=== PATIENT | male | born 1965 | race Caucasian/White ===

== ENCOUNTER 2020-08-28 12:20 | Outpatient (CLI) | payer OTHER, SELFPAY ==
--- NOTE | ~2020-08-28 | XR_ITS ---
EXAMINATION: XR lumbar spine min 4V, XR sacroiliac joints min 3V DATE: 08/28/2020 13:03 INDICATION: Arthropathic psoriasis TECHNIQUE: 1. Anteroposterior, lateral, bilateral oblique and cone-down lateral lumbosacral views of the lumbar spine were obtained. 2. Anteroposterior and left and right oblique views of the sacroiliac joints were obtained. COMPARISON: None. FINDINGS: Lumbar spine: Alignment is normal. Vertebral body and disc heights are normal. Multilevel mild bilateral lumbar fac et osteoarthritis. No pars interarticularis defects. Pelvis: Osteoarthritis with moderate nonuniform joint space narrowing at the bilateral sacroiliac joints. No evident erosions or specifically suggest an inflammatory sacroiliitis. Sacral arches are intact. Bila teral hip joint spaces are normal. Phlebolith in the right hemipelvis. IMPRESSION: 1. Polyarticular osteoarthritis, mild at multiple lumbar facet joints and moderate at the bilateral s acroiliac joints. Reviewed, dictated and finalized at location A. IMPRESSION: 1. Polyarticular osteoarthritis, mild at multiple lumbar facet joints and moder ate at the bilateral sacroiliac joints.
[2020-08-28 13:03] LABS: Hematocrit 47.5 % (42.0-52.0); Hemoglobin 16.2 g/dL (14.0-18.0); Mean Corpuscular HGB Conc 34.1 g/dl (32-36); Mean Corpuscular Hemoglobin 32.8 pg (26-34); Mean Corpuscular Volume 96.2 fl (80-100); Platelet Count Result 193 k/mm3 (150-375); Red Blood Count 4.94 M/mm3 (4.6-6.20); Red Cell Distribution Width 12.1 % (11.5-14.5); White Blood Count 5.5 K/mm3 (4.5-10.0)
[2020-08-28 13:25] LABS: Alanine Aminotransferase 69 U/L (4-50); Albumin Level 4.8 g/dL (3.5-5.1); Alkaline Phosphatase 84 U/L (38-126); Anion Gap 5 mmol/L (8-16); Aspartate Amino Transferase 57 U/L (17-59); Bilirubin,Total 0.9 mg/dL (0.2-1.3); Blood Urea Nitrogen 13 mg/dL (9-20); CRP 0.6 mg/dL (<1.0); Calcium 9.6 mg/dL (8.4-10.2); Carbon Dioxide 32 mmol/L (22-30); Chloride 102 mmol/L (98-107); Estimated Glomerular Filt Rate > 60; Glucose 97 mg/dL (75-110); Potassium 4.2 mmol/L (3.4-5.0); Sodium 139 mmol/L (137-145)
[2020-08-28 14:55] LABS: Erythrocyte Sedimentation Rate 6 mm/hr (0-20)
== END 2020-08-28 12:21 | disposition home or self-care (01) ==
PROVIDERS: Visit Provider Internal Medicine
DX: L40.50 Arthropathic psoriasis, unspecified (principal); M19.90 Unspecified osteoarthritis, unspecified site; M51.36 Other intervertebral disc degeneration, lumbar region
CPT/HCPCS: 36415; 72110; 72202; 80053; 85027; 85652; 86140

== ENCOUNTER 2020-09-01 11:22 | Outpatient (CLI) | payer OTHER, SELFPAY ==
[2020-09-04 21:39] LABS: NIL 0.05 IU/mL; Quantiferon TB Plus, 1T NEGATIVE (NEGATIVE); TB1-NIL 0.01 IU/mL; TB2-NIL 0.01 IU/mL
== END 2020-09-01 11:23 | disposition home or self-care (01) ==
PROVIDERS: Visit Provider Internal Medicine
DX: L40.50 Arthropathic psoriasis, unspecified (principal)
CPT/HCPCS: 36415; 86480

== ENCOUNTER 2021-01-29 16:20 | Outpatient (CLI) | payer OTHER, SELFPAY ==
[2021-01-29 17:21] LABS: Alanine Aminotransferase 86 U/L (4-50); Alkaline Phosphatase 85 U/L (38-126); Anion Gap 9 mmol/L (8-16); Aspartate Amino Transferase 56 U/L (17-59); Blood Urea Nitrogen 11 mg/dL (9-20); Calcium 9.5 mg/dL (8.4-10.2); Carbon Dioxide 30 mmol/L (22-30); Chloride 102 mmol/L (98-107); Estimated Glomerular Filt Rate > 60; Glucose 82 mg/dL (65-110); Potassium 4.3 mmol/L (3.4-5.0); Sodium 141 mmol/L (137-145)
== END 2021-01-29 16:21 | disposition home or self-care (01) ==
LOC: ANHLAB 16:23
PROVIDERS: Visit Provider Internal Medicine
DX: M19.90 Unspecified osteoarthritis, unspecified site (principal); L40.50 Arthropathic psoriasis, unspecified
CPT/HCPCS: 36415; 80053

== ENCOUNTER 2021-09-28 09:59 | Outpatient (CLI) | payer OTHER, SELFPAY ==
[2021-09-28 10:39] LABS: Alanine Aminotransferase 68 U/L (6-50); Albumin Level 4.7 g/dL (3.5-5.1); Alkaline Phosphatase 85 U/L (38-126); Anion Gap 7 mmol/L (8-16); Aspartate Amino Transferase 51 U/L (17-59); Bilirubin,Total 0.7 mg/dL (0.2-1.3); Blood Urea Nitrogen 15 mg/dL (9-20); Calcium 9.2 mg/dL (8.4-10.2); Carbon Dioxide 28 mmol/L (22-30); Chloride 105 mmol/L (98-107); Estimated Glomerular Filt Rate > 60; Glucose 88 mg/dL (65-110); Potassium 4.5 mmol/L (3.4-5.0); Sodium 140 mmol/L (137-145)
== END 2021-09-28 10:00 | disposition home or self-care (01) ==
LOC: ANHLAB 10:01
PROVIDERS: PCP Family Medicine; Visit Provider Internal Medicine
DX: M19.90 Unspecified osteoarthritis, unspecified site (principal)
CPT/HCPCS: 36415; 80053

== ENCOUNTER 2022-11-18 13:21 | Outpatient (CLI) | payer OTHER, SELFPAY ==
[2022-11-18 13:57] LABS: Basophils Percent Auto 0.4 % (0.2-1.2); Eosinophils Absolute Auto 0.4 K/mm3 (0-0.3); Eosinophils Percent Auto 6.3 % (0-4.4); Hematocrit 47.1 % (42.0-52.0); Hemoglobin 15.8 g/dL (14.0-18.0); Immature Granulocyte Absolute 0.02 K/mm3 (0.00-0.031); Immature Granulocyte Percent A 0.3 % (0-0.5); Lymphocytes Absolute Auto 2.45 K/mm3 (0.9-3.2); Lymphocytes Percent Auto 36.5 % (18.3-44.2); Mean Corpuscular HGB Conc 33.5 g/dl (32-36); Mean Corpuscular Hemoglobin 32.2 pg (26-34); Mean Corpuscular Volume 96.1 fl (80-100); Mean Platelet Volume 8.7 fl (7.4-10.4); Monocytes Absolute Auto 0.7 K/mm3 (0.1-0.6); Monocytes Percent Auto 10.6 % (2.6-8.5); Neutrophils Absolute Auto 3.1 K/mm3 (1.3-6.7); Neutrophils Percent Auto 45.9 % (45.5-73.1); Platelet Count Result 213 k/mm3 (150-375); Red Cell Distribution Width 13.3 % (11.5-14.5); White Blood Count 6.7 K/mm3 (4.5-10.0)
[2022-11-18 14:12] LABS: Alanine Aminotransferase 235 U/L (6-50); Albumin Level 4.6 g/dL (3.5-5.1); Alkaline Phosphatase 79 U/L (38-126); Anion Gap 6 mmol/L (8-16); Aspartate Amino Transferase 181 U/L (17-59); Bilirubin,Total 1.2 mg/dL (0.2-1.3); Blood Urea Nitrogen 11 mg/dL (9-20); CRP < 0.5 mg/dL (<1.0); Calcium 9.2 mg/dL (8.4-10.2); Carbon Dioxide 30 mmol/L (22-30); Chloride 101 mmol/L (98-107); Estimated Glomerular Filt Rate > 60; Glucose 84 mg/dL (65-110); Potassium 4.4 mmol/L (3.4-5.0); Sodium 137 mmol/L (137-145)
[2022-11-18 14:39] LABS: Appearance Urine Clear (Clear); Bacteria Urine None Seen /hpf; Bilirubin Urine Negative (Negative); Blood Urine Negative (Negative); Color Urine Yellow (Yellow); Glucose Urine UA Negative (Negative); Ketones Urine Negative (Negative); Leukocyte Esterase Ur Trace LEU/UL (Negative); Nitrate Urine Negative (Negative); Non Pathogenic Casts 0-2; Protein Urine Negative (Negative); RBC Urine 0-2 /hpf (0-2); Squamous Epithelial Cell Urine None seen /hpf (Few); Urobilinogen Urine 0.2 mg/dL (<2.0); WBC Urine 0-5 /hpf
[2022-11-18 14:42] LABS: Add Urine Microscopic? YES
[2022-11-18 15:06] LABS: Erythrocyte Sedimentation Rate 8 mm/hr (0-20)
== END 2022-11-18 13:22 | disposition home or self-care (01) ==
PROVIDERS: Visit Provider Internal Medicine
DX: M06.9 Rheumatoid arthritis, unspecified (principal)
CPT/HCPCS: 36415; 80053; 81001; 85025; 85652; 86140

== ENCOUNTER 2022-12-01 08:52 | Outpatient (CLI) | payer OTHER, SELFPAY ==
--- NOTE | ~2022-12-01 | US_ITS ---
Limited Abdominal Sonogram: Real-time sonographic imaging of the right upper quadrant was performed. Clinical History: Transaminitis Findings: The liver appears echogenic, with no evidence of mass lesion or bile duct dilatation. Main portal vein demonstrates normal direction of flow. The gallbladder is well distended, and appears no rmal with no evidence of gallstone or wall thickening. The common bile duct measures 2 mm. The visua lized pancreas, aorta, and IVC are unremarkable. Impression: Diffuse fatty infiltration of liver. Reviewed, dictated and finalized at location M. Impression: Diffuse fatty infiltration of liver.
== END 2022-12-01 08:53 | disposition home or self-care (01) ==
PROVIDERS: PCP Internal Medicine; Visit Provider Internal Medicine
DX: R74.01 Elevation of levels of liver transaminase levels (principal); K76.0 Fatty (change of) liver, not elsewhere classified
CPT/HCPCS: 76705

== ENCOUNTER 2022-12-23 11:59 | Outpatient (CLI) | payer OTHER, SELFPAY ==
[2022-12-23 13:15] LABS: Prothrombin Time 13.2 Seconds (11.1-14.7)
[2022-12-23 13:18] LABS: Alanine Aminotransferase 85 U/L (6-50); Albumin Level 4.4 g/dL (3.5-5.1); Alkaline Phosphatase 80 U/L (38-126); Aspartate Amino Transferase 68 U/L (17-59)
[2022-12-23 13:50] LABS: Iron 94 ug/dL (49-181)
[2022-12-23 13:59] LABS: Percent Iron Saturation 26 % (20-50)
[2022-12-23 14:15] LABS: Hepatitis B Surface Antigen Negative (Negative)
[2022-12-23 14:21] LABS: HAV RESULT Negative (Negative); Hepatitis B Core IgM Result Negative (Negative)
[2022-12-23 14:33] LABS: Hepatitis C Virus Antibody Negative (Negative)
[2022-12-27 09:22] LABS: Ceruloplasmin 29 mg/dL (18-36)
[2022-12-27 19:08] LABS: Hepatitis A Antibody Total Nonreactive (Nonreactive)
[2022-12-27 20:53] LABS: Actin Antibody (IgG) <20 U (<20)
[2022-12-28 22:10] LABS: Mitochondrial (M2) Ab (IgG) <=20.0 U (<=20.0)
[2022-12-29 14:30] LABS: GGT 69 U/L (3-85)
[2022-12-29 15:27] LABS: Alpha Fetoprotein Tumor Marker 6.9 ng/mL (<6.1)
[2022-12-29 21:58] LABS: LKM 1 Antibody <=20.0 U (<=20.0)
[2023-01-01 15:23] LABS: ALT 66 U/L (9-46); Alpha-2-Macroglobulin 227 mg/dL (106-279); Apolipoprotein A1 174 mg/dL (94-176); Fibrosis Score 0.48; Fibrosis Stage F2; GGT 69 U/L (3-85); Haptoglobin 71 mg/dL (43-212); Necroinflammat Act Grade A1-A2; Total Bilirubin 0.8 mg/dL (0.2-1.2)
== END 2022-12-23 12:00 | disposition home or self-care (01) ==
PROVIDERS: PCP Internal Medicine; Visit Provider Nurse Practitioner Family
DX: R74.01 Elevation of levels of liver transaminase levels (principal)
CPT/HCPCS: 36415; 80074; 80076; 81596; 82105; 82390; 82728; 82977; 83520; 83540; 83550; 85610; 86038; 86364; 86376; 86708

== ENCOUNTER 2023-03-02 09:40 | Outpatient (CLI) | payer OTHER, SELFPAY ==
--- NOTE | ~2023-03-02 | CT_ITS ---
EXAMINATION: CT abdomen w con INDICATION: Abnormality of alpha-fetoprotein TECHNIQUE: Computed tomographic images of the abdomen were obtained after the administration of 100 c c of Omnipaque 350 intravenous contrast in the arterial and portal venous phases. The dose-length pro duct (DLP) was 641.47 mGy-cm. Automated exposure control and iterative reconstruction technique were employed. COMPARISON: None available FINDINGS: Minimal dependent atelectasis is present in the lung bases. The heart size is normal. There is a small sliding hiatal hernia. The liver is diffusely low in attenuation when compared with the s pleen, consistent with hepatic steatosis. The spleen, pancreas, gallbladder, and adrenal glands are n ormal. There is a 5 mm cyst of the left kidney. The right kidney is unremarkable. There are no pathol ogically enlarged abdominal lymph nodes. No abnormal enhancement is present after contrast administra tion the appendix is normal. There is an umbilical hernia containing fat. IMPRESSION: 1. Diffuse hepatic steatosis. Reviewed, dictated and finalized at location B. [employer]
== END 2023-03-02 09:41 | disposition home or self-care (01) ==
PROVIDERS: PCP Internal Medicine; Visit Provider Nurse Practitioner Family
DX: R77.2 Abnormality of alphafetoprotein (principal); K76.0 Fatty (change of) liver, not elsewhere classified
CPT/HCPCS: 74160; Q9967